=== PATIENT | female | born 1995 ===

== ENCOUNTER 2017-06-28 10:51 | Emergency (ER) | payer OTHER ==
[2017-06-28 10:57] VITALS: BP 107/56; PULSE 61; RESP 16; TEMP 97.7; O2SAT 98
[2017-06-28] MEDS ORDERED: Lidocaine 1% Inj (20ml) INFIL STA (11:38)
[2017-06-28] MEDS ORDERED: Bacitracin 500 Units/gm Oint Foilpak UD TOP ONE (11:39)
[2017-06-28] MEDS ORDERED: Lidocaine 1% Inj (20ml) ONE (11:43)
[2017-06-28] MEDS ORDERED: Bacitracin 500 Units/gm Oint Foilpak UD ONE (11:44)
--- NOTE | 2017-06-28 12:00 | C.PDOC ---
History Of Present Illness 21 y/o female comes in for evaluation of a laceration to the left thumb when she was cooking this morning with a knife. Patient denies fever, discharge, or any other complaints. Tetanus is not up to date. No active bleeding currently. Time Seen by Provider: 06/28/17 11:19 Chief Complaint (Nursing): Abnormal Skin Integrity History Per: Patient History/Exam Limitations: no limitations Onset/Duration Of Symptoms: Hrs Current Symptoms Are (Timing): Still Present Location Of Injury: Left: Hand Quality Of Symptoms: Painful Severity: Mild Recent travel outside of the [place]: No Additional History Per: Patient Past Medical History Reviewed: Historical Data, Nursing Documentation, Vital Signs Vital Signs: Last Vital Signs Temp 97.7 F 06/28/17 10:56 Pulse 61 06/28/17 10:56 Resp 16 06/28/17 10:56 BP 107/56 L 06/28/17 10:56 Pulse Ox 98 06/28/17 13:01 Family History: States: Unknown Family Hx - Social History Hx Alcohol Use: No Hx Substance Use: No - Immunization History Hx Tetanus Toxoid Vaccination: No Hx Influenza Vaccination: No Hx Pneumococcal Vaccination: No Review Of Systems Constitutional: Negative for: Fever Skin: Positive for: Lesions (left hand). Negative for: Other (Discharge) Physical Exam - Physical Exam Appears: Non-toxic, No Acute Distress Skin: Warm, Dry Head: Atraumatic, Normacephalic Eye(s): bilateral: Normal Inspection Neck: Normal ROM Extremity: Normal ROM, Capillary Refill (<2secs), No Swelling, Other (1cm superficial linear laceration to the dorsal base of the left thumb, no active bleeding.) Pulses: Left Radial: Normal, Right Radial: Normal Neurological/Psych: Oriented x3, Normal Speech ED Course And Treatment O2 Sat by Pulse Oximetry: 98 Pulse Ox Interpretation: Normal Laceration - Laceration Repair left hand Wound Length (In cm): 1 Description Of Wound: Linear, Clean Wound Cleansed With: Betadine, Sterile Saline Anesthesia: Lidocaine 1% Wound Examination: Irrigated With Saline, No FB With Wound Exploration, No Tendon Injury With Wound Exploration Wound Closure: Suture Suture Technique And Material Used: Interrupted (2), Nylon (4-0) Wound Complexity: Simple Medical Decision Making Medical Decision Making: Patient with finger laceration Wound irrigated with NS and betadyne. No deep structure involvement or tendon involvement. Laceration repair performed by MAGALIE. Bacitracin and sterile dressing applied. Patient given tetanus vaccine. Patient instructed on wound care and suture removal. Disposition Counseled Patient/Family Regarding: Diagnosis, Need For Followup - Disposition Disposition: HOME/ ROUTINE Disposition Time: 12:00 Condition: GOOD Additional Instructions: Remove dressing in 24 hours. Keep area clean and dry. May wash gently with soap and water, do not use alcohol or iodine solution. Change dressing 1-2 times daily. Return to ER if fever occurs, redness or swelling around wound, pus in the wound. Please follow up with your primary doctor, clinic, or urgent care for suture removal in 8-10 days Instructions: Care For Your Stitches (ED) Forms: [facility] (Nauruan) - POA Present On Arrival: None - Clinical Impression Clinical Impression: Laceration of thumb - Scribe Statement The provider has reviewed the documentation as recorded by the Scribe Teena wray All medical record entries made by the Xiomaraibmerline were at my direction and personally dictated by me. I have reviewed the chart and agree that the record accurately reflects my personal performance of the history, physical exam, medical decision making, and the department course for this patient. I have also personally directed, reviewed, and agree with the discharge instructions and disposition.
== END 2017-06-28 12:25 | disposition home or self-care (01) ==
LOC: C.ER 10:51
DX: S61.012A Laceration without foreign body of left thumb without damage to nail, initial encounter (principal); W26.0XXA Contact with knife, initial encounter; Y93.G3 Activity, cooking and baking; Y92.89 Other specified places as the place of occurrence of the external cause; Z23 Encounter for immunization

== ENCOUNTER 2017-07-06 14:06 | Emergency (ER) | payer OTHER ==
[2017-07-06 14:21] VITALS: BP 107/61; PULSE 61; RESP 20; TEMP 97.9; O2SAT 98
[2017-07-06] MEDS ORDERED: Bacitracin 500 Units/gm Oint Foilpak UD ONE (14:26)
--- NOTE | 2017-07-06 14:28 | C.PDOC ---
History Of Present Illness 21 year old female presents to the ED for a wound check. Patient was evaluated in this ED on 06/28 after she sustained a laceration to her left thumb and received two sutures to the area. Patient states pain has improved and denies fever, chills, or drainage at this time. Chief Complaint (Nursing): Wound Check History Per: Patient History/Exam Limitations: no limitations Onset/Duration Of Symptoms: Days Ago Current Symptoms Are (Timing): Still Present Additional History Per: Patient Past Medical History Reviewed: Historical Data, Nursing Documentation, Vital Signs Vital Signs: Last Vital Signs Temp 97.9 F 07/06/17 14:20 Pulse 61 07/06/17 14:20 Resp 20 07/06/17 14:20 BP 107/61 07/06/17 14:20 Pulse Ox 98 07/06/17 18:28 - Medical History PMH: No Chronic Diseases Surgical History: No Surg Hx Family History: States: Unknown Family Hx - Social History Hx Alcohol Use: No Hx Substance Use: No - Immunization History Hx Tetanus Toxoid Vaccination: No Hx Influenza Vaccination: No Hx Pneumococcal Vaccination: No Review Of Systems Skin: Positive for: Other (wound check to left thumb s/p laceration ) Physical Exam - Physical Exam Appears: Non-toxic, No Acute Distress Skin: Normal Color, Warm, Dry, Other (healing laceration to left 1st MCP joint. two intact stitches. no erythema, discharge or signs of infection ) Extremity: Normal ROM, No Tenderness, Capillary Refill (less than 2 seconds ), No Swelling Neurological/Psych: Oriented x3, Normal Speech, Normal Cognition ED Course And Treatment O2 Sat by Pulse Oximetry: 98 (on RA) Pulse Ox Interpretation: Normal Progress Note: Two sutures removed from left 1st MCP joint sucessfully. Patient tolerated well with no complications. Patient is resting comfortably, showing no signs of distress and is stable for discharge. Patient is advised to follow up with her PMD within 1-2 days for further evaluation. Disposition - Disposition Disposition: HOME/ ROUTINE Disposition Time: 14:26 Condition: STABLE Additional Instructions: Follow up with PMD/Clinic within 1-2 days. Return to ED if feel worse. Instructions: Stitches Removal (ED) Forms: [employer] (Korean) - Clinical Impression Clinical Impression: Visit for suture removal - Scribe Statement The provider has reviewed the documentation as recorded by the Scribe (Sabine Patton) All medical record entries made by the Scribe were at my direction and personally dictated by me. I have reviewed the chart and agree that the record accurately reflects my personal performance of the history, physical exam, medical decision making, and the department course for this patient. I have also personally directed, reviewed, and agree with the discharge instructions and disposition.
== END 2017-07-06 14:59 | disposition home or self-care (01) ==
LOC: C.ER 14:06
DX: Z48.02 Encounter for removal of sutures (principal)